=== PATIENT | male | born 2000 | race Caucasian/White ===

== ENCOUNTER 2021-02-17 09:10 | Emergency (ER) | payer OTHER ==
[~2021-02-17] VITALS: Ht 185.4 cm; Wt 73.4 kg
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
--- NOTE | 2021-02-17 09:51 | NUR ---
ice to area. awaiting radiology
[2021-02-17] MEDS ORDERED: IBUPROFEN 600 MG TABLET ONE (09:54)
[2021-02-17] MEDS ORDERED: IBUPROFEN 600 MG TABLET PO ONE (10:00)
--- NOTE | 2021-02-17 10:24 | NUR ---
left for xray
--- NOTE | 2021-02-17 10:36 | NUR ---
patient returned from Xray. awaiting results
[2021-02-17 11:27] VITALS: BP 118/78
--- NOTE | 2021-02-17 11:39 | NUR ---
patient requested referal, let pa know and will dc patient as able
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
== END 2021-02-17 12:14 | disposition home or self-care (01) ==
LOC: ED 12:06
DX: S52.121A Displaced fracture of head of right radius, initial encounter for closed fracture (principal); W18.30XA Fall on same level, unspecified, initial encounter; Y93.79 Activity, other specified sports and athletics; Y92.89 Other specified places as the place of occurrence of the external cause; Y99.8 Other external cause status
CPT/HCPCS: 99283